=== PATIENT | female | born 2000 | race Caucasian/White ===

== ENCOUNTER 2023-09-05 20:45 | Emergency (ER) | payer SELFPAY ==
[2023-09-05 20:55] VITALS: BP 126/84; PULSE 85; RESP 17; TEMP 98.3; BMI 34.7
[2023-09-05] MEDS ORDERED: ACETAMINOPHEN 500 MG TABLET (FP) PO ONE (21:37)
[2023-09-05] MEDS ORDERED: ACETAMINOPHEN 500 MG TABLET (FP) ONE (21:41)
[2023-09-05 21:56] LABS: BASO % 0.4 % (0-2.0); EOS % 3.2 % (0-4.5); HEMATOCRIT 37.9 % (32.4-45.2); HEMOGLOBIN 12.3 GM/dL (10.7-15.3); LYMPH % 32.5 % (8-40); MCH 24.6 pg (25.7-33.7); MCHC 32.4 g/dl (32.0-36.0); MEAN CELL VOLUME 75.8 fl (80-96); MEAN PLT VOLUME 9.8 fl (7.5-11.1); MONO % 7.1 % (3.8-10.2); NEUT % 56.8 % (42.8-82.8); PLATELET COUNT 222 10^3/uL (134-434); RDW 14.7 % (11.6-15.6); WHITE BLOOD COUNT 6.8 K/mm3 (4.0-10.0)
[2023-09-05 22:22] LABS: POTASSIUM 4.3 mmol/L (3.5-5.1)
[2023-09-05 22:24] LABS: CALCIUM 9.4 mg/dL (8.5-10.1)
[2023-09-05 22:25] LABS: ALBUMIN 3.6 g/dl (3.4-5.0); BLOOD UREA NITROGEN 13.8 mg/dL (7-18)
[2023-09-05 22:28] LABS: CREATININE 1.2 mg/dL (0.55-1.3)
[2023-09-05 22:29] LABS: TOT PROT 7.9 g/dl (6.4-8.2)
[2023-09-05 22:30] LABS: BILIRUBIN,TOTAL 0.2 mg/dL (0.2-1)
== END 2023-09-06 00:38 | disposition home or self-care (01) ==
LOC: JER 20:45 → JERFT 20:45 → JER 09-06 00:38
DX: H92.02 Otalgia, left ear (principal); R50.9 Fever, unspecified; H66.92 Otitis media, unspecified, left ear; Z20.822 Contact with and (suspected) exposure to COVID-19
CPT/HCPCS: 0241U-QW; 36415; 70480-TC; 80053; 85025; 87651; 99284-25